=== PATIENT | male | born 1975 | race Caucasian/White ===

== ENCOUNTER 2019-04-20 12:47 | Emergency (ER) | payer OTHER ==
[~2019-04-20] VITALS: Ht 162.6 cm; Wt 66.5 kg
[2019-04-20 12:50] VITALS: BP 133/84; PULSE 58; RESP 18; Ht 162.6 cm; Wt 66.5 kg
--- NOTE | 2019-04-20 13:37 | ERD ---
ER Documentation Chief Complaint Chief Complaint POSSIBLE INFECTED bug bite outer right ankle x4 days HPI 43-year-old male, previously healthy, presents to the emergency department, complaining of progressive worsening of pain over the right external malleolus after a possible insect bite that occurred 4 days ago. The patient is complaining of localized tenderness, erythema and warmth. He denies fever or chills, no shortness of breath, no rashes, no medications taken at this time. ROS All systems reviewed and are negative except as per history of present illness. Medications Home Meds Active Scripts Sulfamethoxazole/Trimethoprim* (Bactrim Ds* Tablet) 1 Each Tablet, 1 TAB PO BID, #14 TAB Prov:NÉSTOR SOARES MD 04/20/19 Ibuprofen* (Motrin*) 400 Mg Tab, 400 MG PO Q6H PRN for PAIN AND OR ELEVATED TEMP, #20 TAB Prov:NÉSTOR SOARES MD 04/20/19 Cephalexin* (Keflex*) 500 Mg Capsule, 500 MG PO BID for 7 Days, CAP Prov:NÉSTOR SOARES MD 04/20/19 Allergies Allergies: Coded Allergies: No Known Allergy (Unverified , 04/20/19) PMhx/Soc Medical and Surgical Hx: pt denies Medical Hx, pt denies Surgical Hx Hx Alcohol Use: No Hx Substance Use: Yes (weed, meth ) Hx Tobacco Use: Yes Smoking Status: Current every day smoker FmHx Family History: No diabetes, No coronary disease Physical Exam Vitals Vital Signs Date Temp Pulse Resp B/P (MAP) Pulse Ox O2 O2 Flow FiO2 Time Delivery Rate 04/20/19 98.5 58 18 133/84 98 12:50 (100) Physical Exam Const: No acute distress Head: Atraumatic Eyes: Normal Conjunctiva ENT: Normal External Ears, Nose and Mouth. Neck: Full range of motion. No meningismus. Resp: Clear to auscultation bilaterally Cardio: Regular rate and rhythm, no murmurs Abd: Soft, non tender, non distended. Normal bowel sounds Skin: No petechiae or rashes Back: No midline or flank tenderness Ext: Right lateral malleolus: With 4 x 4 cm area of erythema, induration, scattered pustular lesions but no fluctuance; no cyanosis, or edema Neur: Awake and alert Psych: Normal Mood and Affect Procedures/MDM Vital signs stable, differential diagnosis include but not limited to: DVT, superficial thrombosis, cellulitis, erysipelas, shingles, abscess. Low suspicion for acute systemic infectious process. Physical examination and clinical presentation consistent most likely with infected insect bite of the right ankle without evidence of abscess formation. During the ED course the patient remained stable, no new complaints. Results and clinical impression discussed with the patient who agrees with management. The patient is stable to be treated outpatient and will be discharged home with a Rx for antibiotics, anti-inflammatories and pain medications, some side effects of prescribed medications (headache, rash, nausea, vomiting, diarrhea, drowsiness, habituation, bleeding, hypertension, interactions with other medications) were reviewed. The patient was instructed to follow up with the primary care provider in the next 48h. If symptoms persist, worsen or new symptoms develop, then patient should return to the ED immediately. Instructions explained and given directly by me to the patient and relatives with acknowledgment and demonstrated understanding. Disclaimer: Inadvertent spelling and grammatical errors are likely due to EHR/dictation software use and do not reflect on the overall quality of patient care. Also, please note that the electronic time recorded on this note does not necessarily reflect the actual time of the patient encounter. Departure Diagnosis: Primary Impression: Infected insect bite of ankle Condition: Stable Additional Instructions: Thank you very much for allowing us to participate in your care. Your health and safety is our top priority at [facility]. The evaluation in the emergency department has been done to rule out an acute emergency. Chronic, [id number] conditions may have not been evaluated; therefore, you need to follow up with a primary care provider in the next 48h. If symptoms persist, worsen or new symptoms develop, then patient should return to the ED immediately. Call your primary care doctor TOMORROW for an appointment during the next 2-4 days and bring all the information provided. Have prescriptions filled and follow precisely the directions on the label. If the symptoms get worse and your provider is unavailable, return to the Emergency Department immediately. NÉSTOR SOARES MD Apr 20, 2019 13:37
[2019-04-20] MEDS ORDERED: IBUP-1561 PO (13:38)
[2019-04-20] MEDS ORDERED: SULF1TAB31 PO (13:38)
[2019-04-20] MEDS ORDERED: CEPH-443 PO (13:38)
== END 2019-04-20 13:53 | disposition home or self-care (01) ==
LOC: FTE 12:47
DX: S90.561A Insect bite (nonvenomous), right ankle, initial encounter (principal); F17.210 Nicotine dependence, cigarettes, uncomplicated; W57.XXXA Bitten or stung by nonvenomous insect and other nonvenomous arthropods, initial encounter; Y92.9 Unspecified place or not applicable
CPT/HCPCS: 99283